=== PATIENT | female | born 1970 | race American Indian/Alaskan Native ===

== ENCOUNTER 2020-03-01 19:15 | Emergency (ER) | payer OTHER ==
[2020-03-01] MEDS ORDERED: LIDOCAINE (2%) 20 MG/1 ML VIAL 20 ML MDV INFILTRATI STA (21:52)
[2020-03-01] MEDS ORDERED: LIDOCAINE (2%) 20 MG/1 ML VIAL 20 ML MDV INFILTRATI ONE (21:53)
[2020-03-01] MEDS ORDERED: DIPHtheria,PERTUSSIS(ACELL),TETANUS VACCINE/PF 0.5 ML VIAL IM ONE (22:02)
--- NOTE | 2020-03-01 22:10 | Emergency Department Report ---
- General Chief complaint: Skin/Abscess/Foreign Body Stated complaint: HAIR PIN IN NOSE Source: patient Mode of arrival: Ambulatory Limitations: No Limitations - History of Present Illness Initial comments: 49-year-old F [place] female presents emerged department complaining of foreign body stuck to the right nose for the last few hours which she has been trying to remove but has been unsuccessful and feels that she is actually made it worse. She was trying to utilize a hair pain in the back was position to H nasal turbinate during the process she lost control of the end of the body pain causing it to open up and her nose becomes stuck. States there is 1 and protruding out and the other and stuck into her nostril she is noticed some mild bleeding with attempt to remove and blow her nose but reports no headache, no ear pain, no presyncope, no shortness of breath, no fever, chills, sweats, no nausea, vomiting. Symptoms appear to be worsened with palpation coughing, talking loud and blowing the nose. She reports no pre-existing issues with her nare. She is try to manually remove this object through manipulation and positioning and has been unsuccessful subsequently causing it to become more painful and reports more swelling presents to the ED for removal. She denies having a foreign body break off into her nose states that he should be intact and her current tetanus status is unknown. She is not taking anything for pain no she tried to put any ointment or any medication on the injury site. -: Sudden Tetanus Up to Date: no Location: generalized Severity: mild, moderate Quality: dull, constant Consistency: constant Improves with: none Worsens with: none Context: none Treatments Prior to Arrival: none - Related Data Previous Rx's Medication Instructions Recorded Last Taken Type Mupirocin Calcium [Bactroban Nasal 0.5 tube NS BID #1 tube 03/01/20 Unknown Rx 2%] Allergies Allergy/AdvReac Type Severity Reaction Status Date / Time No Known Allergies Allergy Unverified 03/01/20 19:55 Abscess Boil HPI - HPI Chief Complaint: Skin/Abscess/Foreign Body Stated Complaint: HAIR PIN IN NOSE Home Medications: Previous Rx's Medication Instructions Recorded Last Taken Type Mupirocin Calcium [Bactroban Nasal 0.5 tube NS BID #1 tube 03/01/20 Unknown Rx 2%] Allergies/Adverse Reactions: Allergies Allergy/AdvReac Type Severity Reaction Status Date / Time No Known Allergies Allergy Unverified 03/01/20 19:55 ED Review of Systems ROS: Stated complaint: HAIR PIN IN NOSE Other details as noted in HPI Comment: All other systems reviewed and negative ED Past Medical Hx - Past Medical History Previous Medical History?: Yes Hx Hypertension: Yes Hx Diabetes: Yes - Surgical History Past Surgical History?: No - Social History Smoking Status: Never Smoker Substance Use Type: None - Medications Home Medications: Home Medications Medication Instructions Recorded Confirmed Last Taken Type Mupirocin Calcium [Bactroban Nasal 0.5 tube NS BID #1 tube 03/01/20 Unknown Rx 2%] ED Physical Exam - General Limitations: No Limitations General appearance: alert, in no apparent distress - Head Head exam: Present: atraumatic, normocephalic - Eye Eye exam: Present: normal appearance - ENT ENT exam: Present: mucous membranes moist, other (Right knee there appears to be extended with a foreign body visualized at the base being the end of about the pain when visualizing into the nail the other portion of the pain is largest in 2 the anterior aspect of the tip of the nose causing some scant bleeding.) - Expanded ENT Exam Expanded Teeth exam: Present: normal inspection Throat exam: Positive: normal inspection - Neck Neck exam: Present: normal inspection - Respiratory Respiratory exam: Present: normal lung sounds bilaterally. Absent: respiratory distress - Cardiovascular Cardiovascular Exam: Present: regular rate, normal rhythm. Absent: systolic murmur, diastolic murmur, rubs, gallop - GI/Abdominal GI/Abdominal exam: Present: soft, normal bowel sounds - Extremities Exam Extremities exam: Present: normal inspection - Back Exam Back exam: Present: normal inspection - Neurological Exam Neurological exam: Present: alert, oriented X3 - Psychiatric Psychiatric exam: Present: normal affect, normal mood - Skin Skin exam: Present: warm, dry, intact, normal color. Absent: rash ED Course Vital Signs 03/01/20 19:49 Temperature 98.3 F Pulse Rate 94 H Respiratory 18 Rate Blood Pressure 202/104 O2 Sat by Pulse 96 Oximetry - Procedure Description Procedures done: Right nasal turbinate was it was irrigated with saline and then lidocaine was escorted into the nasal cavity for topical anesthetic curved Kellys were utilized to remove the hair pain in its entirety ED Medical Decision Making - Medical Decision Making 49-year-old female emerge department with hip pain enlarged to the right nail was manually removed is entirely she was treated with a tetanus shot and advised on appropriate antimicrobial irrigation and treatment of nose. Critical care attestation.: If time is entered above; I have spent that time in minutes in the direct care of this critically ill patient, excluding procedure time. ED Disposition Clinical Impression: Nasal foreign body Disposition: DC- TO HOME OR SELFCARE Is pt being admited?: No Does the pt Need Aspirin: No Condition: Stable Instructions: Nasal Foreign Body, Pediatric, VIS, Tetanus, Diphtheria, and Pertussis (Tdap) - CDC (07/05/2019) Prescriptions: Mupirocin Calcium [Bactroban Nasal 2%] 0.5 tube NS BID #1 tube Referrals: PRIMARY CARE, [Primary Care Provider] - 3-5 Days [facility] [Provider Group] - 3-5 Days
[2020-03-01 23:25] VITALS: BP 160/91
== END 2020-03-01 23:22 | disposition home or self-care (01) ==
LOC: ED 19:15
DX: T17.1XXA Foreign body in nostril, initial encounter (principal); I10 Essential (primary) hypertension; E11.9 Type 2 diabetes mellitus without complications; X58.XXXA Exposure to other specified factors, initial encounter
CPT/HCPCS: 90471; 90715; 99282